=== PATIENT | male | born 1955 | race Caucasian/White ===

== ENCOUNTER → 2022-04-29 | Outpatient (CLI) | payer OTHER ==
[2022-04-29 11:42] LABS: BASOPHILS % (AUTO) 1 % (0-10); EOSINOPHILS # (AUTO) 0.1 10^3/uL (0.0-0.3); EOSINOPHILS % (AUTO) 1 % (0-10); HEMATOCRIT 30 % (40-54); HEMOGLOBIN 9.5 g/dL (13.3-17.7); LYMPHOCYTES # (AUTO) 0.9 10^3/uL (1.0-4.0); LYMPHOCYTES % (AUTO) 13 % (12-44); MEAN CORPUSCULAR HEMOGLOBIN 29 pg (25-34); MEAN CORPUSCULAR HGB CONC 32 g/dL (32-36); MEAN CORPUSCULAR VOLUME 90 fL (80-99); MEAN PLATELET VOLUME 10.5 fL (9.0-12.2); MONOCYTES # (AUTO) 0.4 10^3/uL (0.0-1.0); MONOCYTES % (AUTO) 5 % (0-12); NEUTROPHILS # (AUTO) 5.9 10^3/uL (1.8-7.8); NEUTROPHILS % (AUTO) 80 % (42-75); PLATELET COUNT 229 10^3/uL (130-400); WHITE BLOOD COUNT 7.4 10^3/uL (4.3-11.0)
[2022-04-29 11:51] LABS: ALBUMIN 3.5 GM/DL (3.2-4.5); POTASSIUM 4.1 MMOL/L (3.6-5.0)
[2022-04-29 11:52] LABS: CALCIUM 8.1 MG/DL (8.5-10.1)
[2022-04-29 11:53] LABS: TOTAL PROTEIN 6.8 GM/DL (6.4-8.2)
[2022-04-29 11:55] LABS: BILIRUBIN,TOTAL 0.3 MG/DL (0.1-1.0)
[2022-04-29 11:57] LABS: CREATININE SERUM 1.22 MG/DL (0.60-1.30)
[2022-04-29 12:00] LABS: MAGNESIUM 1.3 MG/DL (1.6-2.4)
== END ==
LOC: LAB 11:27
PROVIDERS: ATTEND Nurse Practitioner Primary Care
DX: E11.65 Type 2 diabetes mellitus with hyperglycemia (principal); E88.09 Other disorders of plasma-protein metabolism, not elsewhere classified; L89.309 Pressure ulcer of unspecified buttock, unspecified stage; D64.9 Anemia, unspecified; E83.42 Hypomagnesemia; Z87.19 Personal history of other diseases of the digestive system
CPT/HCPCS: 36415; 80053; 83735; 85025